=== PATIENT | female | born 2000 | race Caucasian/White ===

== ENCOUNTER 2023-01-17 17:47 | Emergency (ER) | payer OTHER ==
[~2023-01-17] VITALS: Ht 165.1 cm; Wt 57.2 kg
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
[2023-01-17] MEDS ORDERED: IBUPROFEN 600 MG TABLET ONE (17:58)
[2023-01-17] MEDS ORDERED: CYCLOBENZAPRINE 10 MG TABLET ONE (17:58)
[2023-01-17] MEDS ORDERED: CYCLOBENZAPRINE 10 MG TABLET PO ONE (18:00)
[2023-01-17] MEDS ORDERED: IBUPROFEN 600 MG TABLET PO ONE (18:00)
[2023-01-17] MEDS ORDERED: CYCL5TAB PO (18:31)
--- NOTE | 2023-01-17 18:37 | NUR ---
Patient discharged to home in stable condition. Written and verbal after care instructions given. Patient verbalizes understanding of instruction.
[2023-01-17 18:38] VITALS: BP 102/60
== END 2023-01-17 18:39 | disposition home or self-care (01) ==
LOC: ER 17:50 → EDBD 17:50 → ER 18:39
DX: M54.2 Cervicalgia (principal); Z91.013 Allergy to seafood; V89.2XXA Person injured in unspecified motor-vehicle accident, traffic, initial encounter; Y93.89 Activity, other specified; Y92.89 Other specified places as the place of occurrence of the external cause; Y99.8 Other external cause status